=== PATIENT | female | born 1965 | race Caucasian/White ===

== ENCOUNTER 2019-10-04 15:00 | Outpatient (RCR) | payer OTHER, SELFPAY | END 2019-10-04 15:05 | disposition home or self-care (01) | LOC: PT 15:00 | DX: M54.5 Low back pain (principal) | CPT/HCPCS: 97010; 97014; 97033; 97035; 97110; 97140; 97163; G0283 ==

== ENCOUNTER 2020-01-16 13:00 | Outpatient (RCR) | payer OTHER, MEDICAID, SELFPAY | END 2020-01-16 14:02 | disposition home or self-care (01) | LOC: PT 13:00 | PROVIDERS: PCP Nurse Practitioner Family | DX: M54.5 Low back pain (principal) | CPT/HCPCS: 97010; 97014; 97033; 97035; 97110; 97163; G0283 ==

== ENCOUNTER 2020-06-22 12:10 | Emergency (ER) | payer OTHER, SELFPAY ==
[2020-06-22 12:15] VITALS: BP 146/89; PULSE 76; RESP 18; TEMP 36.8; O2SAT 99; BMI 22.8
[2020-06-22 12:33] VITALS: BP 146/89; PULSE 76; RESP 18; TEMP 36.8; O2SAT 99
--- NOTE | 2020-06-22 12:34 | HMH.EDUTC ---
[facility] [place] Clinical Impression: Sinusitis Qualifiers: Sinusitis location: unspecified location Chronicity: unspecified Qualified Code(s): J32.9 - Chronic sinusitis, unspecified Disposition: Home, Self-Care Condition on Discharge: Good Instructions: Sinusitis, Sinus Headache, DI for Sinusitis, DI for COVID-19 (Suspected or Confirmed ), Coronavirus Disease 2019 Additional Instructions: *Monitor Temp, Over the counter Motrin or Tylenol as directed/as needed Tylenol every 4 hours and Motrin every 6 hours (as long as your family doctor has told you that you can take it) for fever or pain. and straight to ER if unable to lower temp less than 101.0 after medication given *Warm salt water gargles may help to soothe the throat *Throat Lozenges *Warm fluids like tea with honey may help to soothe the throat *Sleep elevated *Humidifier/Vaporizer Follow up IMMEDIATELY for new or worsening symptoms or no Noticeable improvement over the next 48-72 hours. 911 for difficulty breathing or swallowing You were tested for today for COVID19 your test result should be back in the next 24-48 hours, you may call to the [facility] to see if your test results are back in the next 48 hours [phone] [facility] hours are 9am-9pm You was given a handout with instructions for Self Quarantine and Self isolation for while you wait on test results and what to do if they are positive If you are positive the Health Dept will be contacting you also Prescriptions: methylPREDNISolone [Medrol 4mg tab] 4 mg PO DIRECTED #21 tab Transmission Status: Pending to [facility] Azithromycin [Z-Baltazar 250mg Tab] 250 mg PO DIRECTED #6 tab Transmission Status: Pending to [facility] Referrals: Williams Veliz MD [Primary Care Provider] - As needed Forms: Work/School Release Time of Disposition: 12:41 Medical Decision Making - Sahil Inquiry Pt receiving controlled substance: No Sahil was queried for this patient: No Vital Signs: 06/22/20 12:15 06/22/20 12:33 Temperature 98.2 F 98.2 F Temperature Source Oral Pulse Rate 76 Pulse Rate [Right Brachial] 76 Respiratory Rate 18 18 Blood Pressure 146/89 H Blood Pressure [Right Arm] 146/89 H Blood Pressure Mean [Right Arm] 108 Blood Pressure Source [Right Arm] Automatic Cuff Blood Pressure Position [Right Arm] Sitting 02 Sat by Pulse Oximetry 99 Oxygen Delivery Method Room Air Orders (Tests/Meds): ORDERS Category Date Time Status Covid-19 Nasal PCR ([facility]) Routine Lab 06/22/20 12:12 Ordered Medical Decision Narrative: Patient reports that she has taken Azithromycin and Medrol dose pack in the past without reactions or complications [facility] [place] - General Stated complaint: covid test Time Seen by Provider: 06/22/20 12:34 Mode of Arrival: Ambulatory Source of Information: Patient Limitations: No Limitations Description of Symptoms (Recalled from Triage Doc. by RN): PATIENT HAS SINUS INFECTION AND HER EMPLOYER IS REQUESTING SHE HAS A COVID TEST BEFORE RETURNING TO WORK HEENT Symptoms (Recalled from RN notes): No Resp Symptoms (Recalled from RN notes): No Skin Symptoms (Recalled from RN notes): No MS Symptoms (Recalled from RN notes): No Functional Status (Recalled from RN notes): WNL - History of Present Illness Provider Complaint: Patient state that she thinks she has a sinus infection State that she has been having sinus pain and pressure for over a week and has sinus headache States that her employer wanted her to come in and get tested before she can return to work - Related Data Home Medications Medication Instructions Recorded Confirmed doxycycline hyclate 100 mg capsule PO 7 Days #14 cap 05/23/18 05/23/18 losartan 50 mg-hydrochlorothiazide 1 tab PO DAILY 05/23/18 05/23/18 12.5 mg tablet pitavastatin calcium 2 mg tablet 2 mg PO DAILY 05/23/18 05/23/18 Previous Rx's Medication Instructions Recorded [id number] 3.5 1 drp O
== END 2020-06-22 12:40 | disposition home or self-care (01) ==
PROVIDERS: Emergency Provider Nurse Practitioner; PCP Family Medicine
DX: Z20.822 Contact with and (suspected) exposure to COVID-19 (principal); J32.9 Chronic sinusitis, unspecified; I10 Essential (primary) hypertension; E78.5 Hyperlipidemia, unspecified; Z88.2 Allergy status to sulfonamides; Z88.5 Allergy status to narcotic agent
CPT/HCPCS: 99202; G0463; U0003

== ENCOUNTER → 2021-05-05 12:47 | Outpatient (CLI) | payer SELFPAY | PROVIDERS: Visit Provider Nurse Practitioner | DX: U07.1 COVID-19 (principal) | CPT/HCPCS: C9803; U0003; U0005 ==

== ENCOUNTER 2022-04-11 10:24 | Emergency (ER) | payer OTHER, SELFPAY ==
[2022-04-11 10:25] VITALS: BP 124/83; PULSE 72; RESP 16; TEMP 36.8; O2SAT 99; BMI 22.8
--- NOTE | 2022-04-11 10:48 | CT_ITS ---
FINAL REPORT CLINICAL HISTORY: stone protocol-- right sided upper abd pain FINDINGS: Axial CT images of the abdomen and pelvis were obtained without intravenous contrast. Coronal reformatted images were also obtained.This study was performed with techniques to keep radiation doses as low as reasonably achievable (ALARA). Individualized dose reduction techniques using automated exposure control or adjustment of mA and/or kV according to the patient's size were employed. Abdomen: There is mild bibasilar atelectasis with a small right pleural effusion. In addition, there is lateral right base opacity worrisome for pneumonia. There is no evidence of renal stone or hydronephrosis. There are postoperative changes from cholecystectomy. The liver, spleen and pancreas have an unremarkable, unenhanced appearance. No inflammatory process is identified. Pelvis: Images of the pelvis reveal no evidence of ureteral dilation or ureteral stone.No mass or abnormal fluid collection is identified. The appendix is normal. There are postoperative changes from hysterectomy. IMPRESSION: No acute intra-abdominal or intrapelvic abnormality. Lateral right lung base opacity, worrisome for pneumonia. Reviewed, Interpreted and Dictated by Shailesh Mcbride III, MD Transcribed by Yuko Delgadillo Authenticated and [facility]
[2022-04-11 10:49] LABS: Microscopic, Urine URINE MICROSCOPIC (MICROSCOPIC)
[2022-04-11 10:51] LABS: Appearance,Urine CLEAR (Clear); Bilirubin,Urine Negative (Negative); Blood, Urine TRACE-I (Negative); Color,Urine YELLOW (Yellow); Glucose,Urine (UA) Negative (Negative); Ketones,Urine Negative (Negative); Leukocyte Esterase,Urine 1+ (Negative); Nitrate,Urine Negative (Negative); PH,Urine 5.5 (5.0-8.5); Protein,Urine Negative (Negative); Urobilinogen,Urine 0.2 EU/dl (0.2)
--- NOTE | 2022-04-11 10:52 | XR_ITS ---
FINAL REPORT CLINICAL HISTORY: right lower chest / abd pain FINDINGS: A single portable view of the chest was obtained. The heart size and pulmonary vascularity are within normal limits. The mediastinum is within normal limits. There is mild atelectasis or pneumonia in the right lung base. The bony thorax is intact. IMPRESSION: Mild right base atelectasis or pneumonia. Reviewed, Interpreted and Dictated by Shailesh Mcbride III, MD Transcribed by Yuko Delgadillo Authenticated and [facility]
[2022-04-11 11:00] VITALS: BP 128/79; PULSE 71; O2SAT 100
--- NOTE | 2022-04-11 11:08 | HMH.EDGENADL ---
Discharge Plan Disposition Patient Disposition: Home, Self-Care Condition: Good Prescriptions Prescriptions: New doxycycline monohydrate 100 mg capsule 100 mg PO DAILY 7 Days Qty: 14 0RF Rx Instructions: Please take two tablet twice a day for 7 days No Action doxycycline hyclate 100 mg capsule PO 7 Days Qty: 14 Label Comments: TAKE ONE CAPSULE TWICE A DAY FOR 7 DAYS. losartan-hydrochlorothiazide 50-12.5 mg tablet 1 tab PO DAILY Livalo 2 mg tablet 2 mg PO DAILY neomycin-polymyxin B-dexameth 3.5mg/mL-10,000 unit/mL-0.1 % drops,suspension 1 drp OPHTHALMIC Q8H 7 Days Qty: 5 0RF azithromycin 250 MG tablet 250 mg PO DIRECTED Qty: 6 0RF Rx Instructions: Take two (2) tablets on day #1, then one (1) tablet day #2 thru #5 methylprednisolone 4 MG tablet 4 mg PO DIRECTED Qty: 21 0RF Rx Instructions: Take as directed on package instructions Referrals Follow up/Referrals: Williams Veliz MD [Primary Care Provider] - See instructions Activity Restrictions/Add. Instructions Additional Instructions/Restrictions: Please follow-up with your primary care physician in the next 1 to 2 days for further management and surveillance of your pneumonia. Please take doxycycline antibiotic as prescribed for your UTI and pneumonia. Please return to the emergency department for any other worsening symptoms. Clinical Impressions Clinical Impression: UTI (urinary tract infection), Pneumonia Instructions Patient Instructions: DI for Pneumonia -- Adult, DI for Urinary Tract Infection (UTI) Print Language Print Language: [place] Discharge ED Provider: Ninfa Stanley Adult HPI General Chief complaint: PAIN Stated complaint: right side pain that radiates to stomach area Time Seen by Provider: 04/11/22 10:30 Mode of Arrival: Ambulatory Source of Information: Patient Limitations: No Limitations Description of Symptoms (Recalled from ER Triage Doc. by RN): Pt c/o R shoulder blade area pain radiating around to under R breast. Pt reports pain worsens with coughing or deep breaths, pt reports can't lay flat r/t increased pain. Pt reports pain began monday (2 days ago). History of Present Illness HPI narrative: Miss dooley has no significant PMH, who presents to the ED for (R) breast pain/RUQ. Patient reports coughing and pain with deep breaths. Patient reports worse with laying flat or twisting. She reports symptoms onset 2d prior. She denies any fevers or other infectious symptoms. No urinary sx. No bowel changes. No recent trauma to the chest or abdomen. No known sick contacts. MD complaint: lower right chest pain / upper abdominal pain Onset (ago): day(s) Radiation: abdomen Severity: mild Quality: aching Consistency: intermittent Relieving factors: immobilization Exacerbating factors: movement Associated symptoms: denies other symptoms Treatments prior to arrival: none Related Data Home Medications Medication Instructions Recorded Confirmed doxycycline hyclate 100 mg capsule PO 7 days #14 caps 05/23/18 05/23/18 losartan 50 mg-hydrochlorothiazide 1 tab PO DAILY 05/23/18 05/23/18 12.5 mg tablet pitavastatin calcium 2 mg tablet 2 mg PO DAILY 05/23/18 05/23/18 (Livalo) Previous Rx's Medication Instructions Recorded [id number]-[id number] 3.5 1 drp ophthalmic (eye) Q8H 05/23/18 mg/mL-10,000 unit/mL-0.1% eye drops conjunctivitis 7 days #5 mL azithromycin 250 mg tablet 250 mg PO DIRECTED #6 tabs 06/22/20 methylprednisolone 4 mg tablet 4 mg PO DIRECTED #21 tabs 06/22/20 doxycycline monohydrate 100 mg 100 mg PO DAILY pneumonia and uti 04/11/22 capsule 7 days #14 caps Allergies Allergy/AdvReac Type Severity Reaction Status Date / Time Sulfa (Sulfonamide Allergy Mild Verified 05/23/18 15:28 Antibiotics) codeine Allergy Verified 06/22/20 12:27 PFSH PFS Disclaimer: The information contained in this section may have
[2022-04-11 11:12] LABS: Bacteria,Urine 1+ /lpf
[2022-04-11 11:19] LABS: Chloride 104 mmol/L (98-107); Potassium 3.8 mmoL/L (3.5-5.1); Sodium 135 mmol/L (136-145)
[2022-04-11 11:21] LABS: Basophils # 0.2 K/mm3 (0-0.2); Basophils % 1.7 % (0.1-2.0); Blood Urea Nitrogen 17 mg/dl (7-17); Creatinine Clearance Estimated 73 mL/min (50-200); Eosinophils # 0.1 K/mm3 (0.0-0.4); Eosinophils % 1.2 % (0.1-12.0); Estimated Glomerular Filt Rate 64 ml/min (>60); GFR (African American) 78 ML/MIN (>60); Hemoglobin 13.9 g/dL (12.2-16.2); Lymphocytes # 1.1 K/mm3 (0.7-4.5); Lymphocytes % 12.2 % (10-50); Mean Corpuscular HGB Conc 33.9 g/dL (31.8-35.4); Mean Corpuscular Hemoglobin 30.9 pg (27.0-31.2); Mean Platelet Volume 7.8 fl (7.4-10.4); Monocytes # 0.5 K/mm3 (0.1-1.0); Monocytes % 4.9 % (1.7-9.3); Neutrophils # 7.3 K/mm3 (1.8-7.8); Platelet Count 269 K/mm3 (142-424); Red Cell Distribution Width 13.3 % (11.5-17.5); White Blood Count 9.2 K/mm3 (4.8-10.8)
[2022-04-11 11:22] LABS: Alanine Aminotransferase 19 U/L (12-78); Albumin/Globulin Ratio 1.5 (1.1-1.8); Alkaline Phosphatase 88 U/L (38-126); Anion Gap 5.8 mEq/L (5-15); Aspartate Amino Transferase 21 U/L (14-36); Bilirubin,Total 1.2 mg/dl (0.2-1.3); Calcium 9.6 mg/dl (8.4-10.2); Carbon Dioxide 29 mmol/L (22.0-30.0); Globulin 2.7 g/dL (1.3-3.2); Glucose 88 mg/dl (74-100); Total Protein,Serum 6.7 g/dl (6.3-8.2)
--- NOTE | 2022-04-11 11:24 | PC.NURSE ---
pt returned from radiology via .
[2022-04-11 11:25] LABS: Lactic Acid 0.5 mmol/L (0.7-2.1)
[2022-04-11 11:30] VITALS: BP 129/84; PULSE 72; O2SAT 99
[2022-04-11 12:00] VITALS: BP 139/84; PULSE 72; O2SAT 99
--- NOTE | 2022-04-11 12:43 | PC.NURSE ---
contacted rad to check on status of Ct and xray report, spoke with laura
--- NOTE | 2022-04-11 12:45 | PC.NURSE ---
rad reports received from radiology department, given to YURI GONZALEZ at this time
[2022-04-11 13:20] VITALS: BP 119/82; PULSE 77; RESP 18; TEMP 36.8; O2SAT 97
== END 2022-04-11 13:20 | disposition home or self-care (01) ==
PROVIDERS: Emergency Provider Student in an Organized Health Care Education/Training Program; PCP Family Medicine
DX: J18.9 Pneumonia, unspecified organism (principal); N39.0 Urinary tract infection, site not specified
CPT/HCPCS: 71045; 74176; 80053; 81001; 83605; 85025; 87086; 99285

== ENCOUNTER → 2022-04-27 16:02 | Outpatient (CLI) | payer OTHER, SELFPAY ==
--- NOTE | 2022-04-27 16:07 | XR_ITS ---
FINAL REPORT TECHNIQUE: Chest PA & Lateral CLINICAL HISTORY: Pneumonia, unspecified organism COMPARISON: April 11, 2022 FINDINGS: 2 views of the chest were performed. The heart size is normal. The mediastinum is within normal limits. There is partially improved right base opacity. There are no pleural effusions. There is no pneumothorax. The bony thorax appears intact. IMPRESSION: Partially improved right base opacity consistent with improved pneumonia. Reviewed, Interpreted and Dictated by Shailesh Mcbride III, MD Transcribed by Stephen Nash Authenticated and [facility]
== END ==
LOC: RAD 16:03
PROVIDERS: PCP Family Medicine; Visit Provider Family Medicine
DX: J18.9 Pneumonia, unspecified organism (principal)
CPT/HCPCS: 71046

== ENCOUNTER → 2022-06-27 08:46 | Outpatient (CLI) | payer OTHER, SELFPAY ==
--- NOTE | 2022-06-27 08:57 | XR_ITS ---
FINAL REPORT CLINICAL HISTORY: PNEUMONIA COMPARISON: 04/27/2022 FINDINGS: Two views of the chest were obtained. The heart size and pulmonary vascularity are within normal limits. The mediastinum is normal. No acute pulmonary abnormality is identified. There is no pneumothorax. The bony thorax is intact. IMPRESSION: No active cardiopulmonary disease. Reviewed, Interpreted and Dictated by Shailesh Mcbride III, MD Transcribed by Yuko Delgadillo Authenticated and [facility]
== END ==
LOC: RAD 08:46
PROVIDERS: PCP Family Medicine; Visit Provider Family Medicine
DX: J18.9 Pneumonia, unspecified organism (principal)
CPT/HCPCS: 71046